=== PATIENT | male | born 1970 | race African-American/Black ===

== ENCOUNTER 2020-03-28 11:14 | Inpatient (IN) ==
[2020-03-28] MEDS ORDERED: SODIUM CHLORIDE 0.9% 1000ML 1,000 ML IV SCH (11:30)
--- NOTE | 2020-03-28 11:31 | Emergency Department Note ---
Impression & Plan Unresponsive episode, Atrial fibrillation with rapid ventricular response, Hypothermia, Acute dehydration ED Provider Note NAME: HEMANT EVERETT AGE: 49 SEX: M : 1970 ARRIVES VIA: Ambulance INFORMANT: [Patient][ems] ED PROVIDER(S): [Jhonathan Vee MD] CHIEF COMPLAINT: Unresponsive episode HISTORY OF PRESENT ILLNESS: The patient is a 49-year-old male who is brought in for an unresponsive episode. 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 The patient was sitting in a car and found to be unresponsive. He was cold to the touch. His pupils were pinpoint. EMS arrived, [id number] ventilation was done via a nasal airway. Patient received a total of 3 doses of Narcan, the third dose seemed to bring him around. He now complains only of being cold. He denies any recent trauma, he states that he was having a normal day today earlier. He denies any drugs or alcohol. There is security at bedside. Patient denies chest pain or shortness of breath. He denies any abdominal pain. He denies weakness. REVIEW OF SYSTEMS: See HPI for pertinent positives and negatives. A total of ten systems were reviewed and were otherwise negative. PMHx/PSHx: See Below SOCIAL HISTORY: See Below. PHYSICAL EXAM: GENERAL: Patient is in mild distress HEENT: No acute trauma, normocephalic atraumatic, mucous membranes moist, no nasal congestion, no scleral icterus. Bilateral conjunctival injection noted. NECK: No stridor, no adenopathy, no meningismus, trachea is midline. LUNGS: Clear to auscultation bilaterally, no wheeze, no rhonchi, breath sounds equal. HEART: Mildly tachycardic, somewhat irregular rhythm. No murmurs heard. ABDOMEN: Soft, nontender, bowel sounds positive, no hernias, no peritonitis. EXTREMITIES: No cyanosis or edema, full range of motion of all the joints without pain or difficulty, no signs for acute trauma. NEUROLOGIC: Awake and alert, moves all extremities, answers simple questions. Currently appears oriented. SKIN: No rash, no jaundice, no diaphoresis. DIFFERENTIAL DIAGNOSIS: Infection, dehydration, metabolic abnormality, intracranial bleeding, drug and alcohol abuse, hypothermia, stroke, dysrhythmia, hypo/hyperglycemia, electrolyte disturbance, anemia, hypoxia, cardiac sources, intracerebral event, toxicologic, neurologic, as well as other pathologies. EMERGENCY DEPARTMENT COURSE/PROCEDURES: ECG: Indication was unresponsive episode. The ECG shows significant baseline artifact making rhythm interpretation near impossible. There may be an underlying atrial fibrillation. The rate is about 120. No obvious ST elevation, no PVCs. QTC is 483. Repeat ECG: Second EKG was done because of tachycardia. The ECG shows atrial fibrillation with a rate of 128. There is no ST elevation, no PVCs. The QTc is 475. Continuous Cardiac Monitoring: An order was placed for continuous cardiac monitoring. The monitor shows a rate of 123 with atrial fibrillation. Critical Care Note: I have personally spent 42 minutes of critical care time in the direct management of this patient. This includes bedside care, interpretation of diagnostic studies, and testing, discussion with consultants, patient, and family members, and other required patient management activities. This 42 minutes is in excess of all separately billable procedures. MEDICAL DECISION MAKING: There is a mild leukocytosis at 13,000, this could be consistent with infection or the stress of his situation. There is a normal hemoglobin. There is a slightly low platelet count at 128. No significant electrolyte abnormality or kidney failure. Lactic acid level was somewhat elevated consistent with dehydration or possibly infection. No worrisome liver enzyme elevation. The patient appeared to be in a euthyroid state. ECG showed a rapid atrial fibrill ation, no acute ischemia. Cardiac enzyme testing x1 is not consistent with acute cardiac injury. Chest film did not show pneumonia or CHF. Brain CT showed no acute bleed or mass-effect. Urinalysis did not show any evidence for infection. Urine tox was positive for cocaine and marijuana. Alcohol level was mildly elevated at 13. Covid testing returned negative. On my exam, the patient was tachycardic, he was oriented x3. His skin was cold to the touch. The patient was aggressively managed. He was hypothermic by our testing. A kamaljit hugger was applied. He received 2 L of IV saline for hydration, 1 L of lactated Ringer's for hydration. He received 5 mg of Lopressor IV for his rapid A. fib. The patient is improving. He remains tachycardic and in atrial fibrillation however, he is doing well otherwise. His temperature has improved. The patient requires a hospital stay. Drug use/abuse seems a likely cause for his presentation. As per the EMS crew, he rebounded after intranasal Narcan was administered. I did speak to the patient, I spoke with case management. The on-call hospitalist has been consulted. Past Med/Surg History Medical History Alcohol dependence Social History Smoking Status: Current every day smoker Tobacco Type: Cigarettes Preferred Language: Niuean Feels Safe at Home: Yes Allergies Allergies Allergy/AdvReac Type Severity Reaction Status Date / Time No Known Drug Allergies Allergy Unknown Unverified 03/28/20 14:05 shellfish derived Allergy Unknown Unverified 03/28/20 14:05 Home Meds Home Medications Medication Instructions Recorded Confirmed No Known Home Medications 03/28/20 03/28/20 Results & Data (ED) Vital Signs Vital Signs - 24 hr 03/28/20 11:15 03/28/20 11:25 03/28/20 11:26 Temperature 31.5 C L Temperature Source Rectal Pulse Rate 122 H 127 H Pulse Rate from SpO2 Sensor 96 H Pulse Rhythm Irregular Pulse Strength Normal Respiratory Rate 20 21 Respiratory Effort / Characteristics Non-Labored Spontaneous Respiratory Depth Normal Respiratory Pattern Regular Blood Pressure 140/110 H Blood Pressure Mean 120 Blood Pressure Position Lying Pulse Oximetry 99 100 99 Oxygen Delivery Method Room Air Room Air Sepsis Recent Fever Within 48 Hours No Sepsis New/Unexplained Change in Mental Status Yes Sepsis Action Taken by Nursing No Action Required 03/28/20 11:27 03/28/20 11:30 03/28/20 11:45 Temperature Temperature Source Pulse Rate 131 H 132 H 143 H Pulse Rate from SpO2 Sensor 110 H 130 H Pulse Rhythm Pulse Strength Respiratory Rate 18 18 18 Respiratory Effort / Characteristics Respiratory Depth Respiratory Pattern Blood Pressure 140/110 H Blood Pressure Mean 114 Blood Pressure Position Pulse Oximetry 94 98 Oxygen Delivery Method Sepsis Recent Fever Within 48 Hours Sepsis New/Unexplained Change in Mental Status Sepsis Action Taken by Nursing 03/28/20 11:46 03/28/20 12:00 03/28/20 12:05 Temperature Temperature Source Pulse Rate 142 H 130 H 137 H Pulse Rate from SpO2 Sensor 125 H 112 H 130 H Pulse Rhythm Pulse Strength Respiratory Rate 20 24 27 H Respiratory Effort / Characteristics Respiratory Depth Respiratory Pattern Blood Pressure 161/117 H 185/165 H Blood Pressure Mean 149 167 Blood Pressure Position Pulse Oximetry 97 99 100 Oxygen Delivery Method Sepsis Recent Fever Within 48 Hours Sepsis New/Unexplained Change in Mental Status Sepsis Action Taken by Nursing 03/28/20 12:16 03/28/20 12:31 03/28/20 12:45 Temperature Temperature Source Pulse Rate 127 H 119 H 122 H Pulse Rate from SpO2 Sensor 104 H 102 H 110 H Pulse Rhythm Pulse Strength Respiratory Rate 27 H 21 14 Respiratory Effort / Characteristics Respiratory Depth Respiratory Pattern Blood Pressure 82/69 L 95/74 L 95/70 L Blood Pressure Mean 72 81 87 Blood Pressure Position Pulse Oximetry 97 99 98 Oxygen Delivery Method Sepsis Recent Fever Within 48 Hours Sepsis New/Unexplained Change in Mental Status Sepsis Action Taken by Nursing 03/28/20 13:01 03/28/20 13:18 03/28/20 13:20 Temperature 36.4 C Temperature Source Oral Pulse Rate 132 H 139 H Pulse Rate from SpO2 Sensor 106 H 106 H Pulse Rhythm Pulse Strength Respiratory Rate 12 17 Respiratory Effort / Characteristics Respiratory Depth Respiratory Pattern Blood Pressure 80/51 L 111/86 Blood Pressure Mean 70 92 Blood Pressure Position Pulse Oximetry 98 97 Oxygen Delivery Method Sepsis Recent Fever Within 48 Hours Sepsis New/Unexplained Change in Mental Status Sepsis Action Taken by Nursing 03/28/20 13:31 03/28/20 13:46 03/28/20 13:59 Temperature Temperature Source Pulse Rate 124 H 149 H 160 H Pulse Rate from SpO2 Sensor 95 H 115 H Pulse Rhythm Pulse Strength Respiratory Rate 12 12 Respiratory Effort / Characteristics Respiratory Depth Respiratory Pattern Blood Pressure 97/72 L 147/114 H 96/78 L Blood Pressure Mean 75 131 Blood Pressure Position Pulse Oximetry 97 98 Oxygen Delivery Method Sepsis Recent Fever Within 48 Hours Sepsis New/Unexplained Change in Mental Status Sepsis Action Taken by Nursing 03/28/20 14:02 03/28/20 14:16 03/28/20 14:30 Temperature Temperature Source Pulse Rate 129 H 174 H 120 H Pulse Rate from SpO2 Sensor 92 H 87 Pulse Rhythm Pulse Strength Respiratory Rate 16 23 15 Respiratory Effort / Characteristics Respiratory Depth Respiratory Pattern Blood Pressure 96/78 L 117/97 103/63 Blood Pressure Mean 83 100 85 Blood Pressure Position Pulse Oximetry 95 97 Oxygen Delivery Method Sepsis Recent Fever Within 48 Hours Sepsis New/Unexplained Change in Mental Status Sepsis Action Taken by Nursing 03/28/20 14:48 03/28/20 15:00 03/28/20 15:08 Temperature Temperature Source Pulse Rate 118 H 116 H Pulse Rate from SpO2 Sensor 72 66 Pulse Rhythm Pulse Strength Respiratory Rate 13 11 L Respiratory Effort / Characteristics Respiratory Depth Respiratory Pattern Blood Pressure 89/65 L 98/70 L Blood Pressure Mean 68 76 Blood Pressure Position Pulse Oximetry 93 89 L 93 Oxygen Delivery Method Room Air Sepsis Recent Fever Within 48 Hours Sepsis New/Unexplained Change in Mental Status Sepsis Action Taken by Nursing 03/28/20 15:15 03/28/20 15:38 03/28/20 15:45 Temperature Temperature Source Pulse Rate 120 H 136 H Pulse Rate from SpO2 Sensor 92 H Pulse Rhythm Pulse Strength Respiratory Rate 14 14 Respiratory Effort / Characteristics Respiratory Depth Respiratory Pattern Blood Pressure 97/68 L 101/72 97/73 L Blood Pressure Mean 83 88 83 Blood Pressure Position Pulse Oximetry 93 Oxygen Delivery Method Sepsis Recent Fever Within 48 Hours Sepsis New/Unexplained Change in Mental Status Sepsis Action Taken by Nursing 03/28/20 16:00 03/28/20 16:15 03/28/20 16:30 Temperature Temperature Source Pulse Rate 126 H 116 H 123 H Pulse Rate from SpO2 Sensor 90 Pulse Rhythm Pulse Strength Respiratory Rate 15 17 14 Respiratory Effort / Characteristics Respiratory Depth Respiratory Pattern Blood Pressure 89/69 L 102/76 88/67 L Blood Pressure Mean 81 87 71 Blood Pressure Position Pulse Oximetry 93 Oxygen Delivery Method Sepsis Recent Fever Within 48 Hours Sepsis New/Unexplained Change in Mental Status Sepsis Action Taken by Longterm Medications Current Medication List: was personally reviewed by me Laboratory Data Attestation: I reviewed the patient's lab results. Result diagrams: 03/28/20 11:52 03/28/20 11:52 Lab Results 03/28/20 03/28/20 03/28/20 Range/Units 11:52 11:52 11:52 WBC 13.12 H (4.8-10.8) K/uL RBC 4.73 (4.7-6.1) M/uL Hgb 15.5 (14.0-18.0) g/dL Hct 45.1 (42-52) % MCV 95.3 (80-100) fL MCH 32.8 (25-34) pg MCHC 34.4 (32-36) g/dL RDW Std Deviation 48.5 H (36.4-46.3) fL RDW Coeff of Felicia 13.7 (11.5-14.5) % Plt Count 128 L (130-400) K/uL MPV 10.7 H (7.4-10.4) fL Immature Gran % (Auto) 0.6 % Neut % (Auto) 73.0 % Lymph % (Auto) 22.5 % Lea % (Auto) 3.3 % Eos % (Auto) 0.5 % Baso % (Auto) 0.1 % Neut # (Auto) 9.58 H (1.4-6.5) K/uL Lymph # (Auto) 2.95 (1.2-3.4) K/uL Lea # (Auto) 0.43 (0.11-0.59) K/uL Eos # (Auto) 0.07 (0-0.5) K/uL Baso # (Auto) 0.01 (0-0.2) K/uL Immature Gran # (Auto) 0.08 H (0.00-0.02) K/uL PT (9.0-12.0) Seconds INR (0.9-1.1) Sodium 135 L (136-145) mmol/L Potassium 3.8 (3.5-5.1) mmol/L Chloride 101 (98-107) mmol/L Carbon Dioxide 20 L (21-32) mmol/L Anion Gap 14.0 H (3-11) BUN 14 (7-18) mg/dl Creatinine 1.09 (0.6-1.4) mg/dl Est Cr Clr Drug Dosing 76.2 ml/min Est GFR ( Amer) 93.2 Est GFR (Non-Af Amer) 80.4 BUN/Creatinine Ratio 12.5 (10-20) Glucose 240 H (70-99) mg/dl Lactate Cancelled Calcium 8.7 (8.5-10.1) mg/dl Magnesium 2.5 H (1.8-2.4) mg/dl Total Bilirubin 0.3 (0.2-1) mg/dl AST 44 H (15-37) U/L ALT 39 (12-78) U/L Alkaline Phosphatase 103 (45-117) U/L Total Creatine Kinase 296 (39-308) U/L Troponin I < 0.015 (0-0.045) ng/ml Total Protein 9.4 H (6.4-8.2) gm/dl Albumin 4.1 (3.4-5.0) gm/dl Globulin 5.3 H (2.5-4.0) gm/dl Albumin/Globulin Ratio 0.8 L (0.9-2) TSH 1.490 (0.300-4.500) uIu/ml Urine Color Urine Appearance (Clear) Urine pH (4.5-7.5) Ur Specific Gatzke (1.000-1.030) Urine Protein (Negative) Urine Glucose (UA) (Negative) Urine Ketones (Negative) Urine Blood (Negative) Urine Nitrite (Negative) Urine Bilirubin (Negative) Urine Urobilinogen (Negative) Ur Leukocyte Esterase (Negative) Urine WBC (Auto) (0-5) /hpf Urine RBC (Auto) (0-4) /hpf U Hyaline Cast (Auto) (0-5) /lpf U Epithel Cells (Auto) (0-5) /lpf Urine Bacteria (Auto) (Negative) Urine Opiates Screen (Neg) Ur Methadone, Qual (Neg) Urine Barbiturates (Neg) Ur Phencyclidine (PCP) (Neg) U Amphetamin/Meth Scrn (Neg) MDMA (Ecstasy) Screen (Neg) U Benzodiazepines Scrn (Neg) Ur Cocaine Metabolite (Neg) U Marijuana (THC) Screen (Neg) Ethyl Alcohol mg/dL (0-3) mg/dl SARS-CoV-2 Ag (Rapid) (Negative) 03/28/20 03/28/20 03/28/20 Range/Units 11:52 12:00 13:26 WBC (4.8-10.8) K/uL RBC (4.7-6.1) M/uL Hgb (14.0-18.0) g/dL Hct (42-52) % MCV (80-100) fL MCH (25-34) pg MCHC (32-36) g/dL RDW Std Deviation (36.4-46.3) fL RDW Coeff of Felicia (11.5-14.5) % Plt Count (130-400) K/uL MPV (7.4-10.4) fL Immature Gran % (Auto) % Neut % (Auto) % Lymph % (Auto) % Lea % (Auto) % Eos % (Auto) % Baso % (Auto) % Neut # (Auto) (1.4-6.5) K/uL Lymph # (Auto) (1.2-3.4) K/uL Lea # (Auto) (0.11-0.59) K/uL Eos # (Auto) (0-0.5) K/uL Baso # (Auto) (0-0.2) K/uL Immature Gran # (Auto) (0.00-0.02) K/uL PT 10.7 (9.0-12.0) Seconds INR 1.0 (0.9-1.1) Sodium (136-145) mmol/L Potassium (3.5-5.1) mmol/L Chloride (98-107) mmol/L Carbon Dioxide (21-32) mmol/L Anion Gap (3-11) BUN (7-18) mg/dl Creatinine (0.6-1.4) mg/dl Est Cr Clr Drug Dosing ml/min Est GFR ( Amer) Est GFR (Non-Af Amer) BUN/Creatinine Ratio (10-20) Glucose (70-99) mg/dl Lactate 2.6 H* Calcium (8.5-10.1) mg/dl Magnesium (1.8-2.4) mg/dl Total Bilirubin (0.2-1) mg/dl AST (15-37) U/L ALT (12-78) U/L Alkaline Phosphatase (45-117) U/L Total Creatine Kinase (39-308) U/L Troponin I (0-0.045) ng/ml Total Protein (6.4-8.2) gm/dl Albumin (3.4-5.0) gm/dl Globulin (2.5-4.0) gm/dl Albumin/Globulin Ratio (0.9-2) TSH (0.300-4.500) uIu/ml Urine Color Urine Appearance (Clear) Urine pH (4.5-7.5) Ur Specific Gatzke (1.000-1.030) Urine Protein (Negative) Urine Glucose (UA) (Negative) Urine Ketones (Negative) Urine Blood (Negative) Urine Nitrite (Negative) Urine Bilirubin (Negative) Urine Urobilinogen (Negative) Ur Leukocyte Esterase (Negative) Urine WBC (Auto) (0-5) /hpf Urine RBC (Auto) (0-4) /hpf U Hyaline Cast (Auto) (0-5) /lpf U Epithel Cells (Auto) (0-5) /lpf Urine Bacteria (Auto) (Negative) Urine Opiates Screen (Neg) Ur Methadone, Qual (Neg) Urine Barbiturates (Neg) Ur Phencyclidine (PCP) (Neg) U Amphetamin/Meth Scrn (Neg) MDMA (Ecstasy) Screen (Neg) U Benzodiazepines Scrn (Neg) Ur Cocaine Metabolite (Neg) U Marijuana (THC) Screen (Neg) Ethyl Alcohol mg/dL 13.5 H (0-3) mg/dl SARS-CoV-2 Ag (Rapid) (Negative) 03/28/20 03/28/20 03/28/20 Range/Units 14:19 14:19 14:25 WBC (4.8-10.8) K/uL RBC (4.7-6.1) M/uL Hgb (14.0-18.0) g/dL Hct (42-52) % MCV (80-100) fL MCH (25-34) pg MCHC (32-36) g/dL RDW Std Deviation (36.4-46.3) fL RDW Coeff of Felicia (11.5-14.5) % Plt Count (130-400) K/uL MPV (7.4-10.4) fL Immature Gran % (Auto) % Neut % (Auto) % Lymph % (Auto) % Lea % (Auto) % Eos % (Auto) % Baso % (Auto) % Neut # (Auto) (1.4-6.5) K/uL Lymph # (Auto) (1.2-3.4) K/uL Lea # (Auto) (0.11-0.59) K/uL Eos # (Auto) (0-0.5) K/uL Baso # (Auto) (0-0.2) K/uL Immature Gran # (Auto) (0.00-0.02) K/uL PT (9.0-12.0) Seconds INR (0.9-1.1) Sodium (136-145) mmol/L Potassium (3.5-5.1) mmol/L Chloride (98-107) mmol/L Carbon Dioxide (21-32) mmol/L Anion Gap (3-11) BUN (7-18) mg/dl Creatinine (0.6-1.4) mg/dl Est Cr Clr Drug Dosing ml/min Est GFR ( Amer) Est GFR (Non-Af Amer) BUN/Creatinine Ratio (10-20) Glucose (70-99) mg/dl Lactate Calcium (8.5-10.1) mg/dl Magnesium (1.8-2.4) mg/dl Total Bilirubin (0.2-1) mg/dl AST (15-37) U/L ALT (12-78) U/L Alkaline Phosphatase (45-117) U/L Total Creatine Kinase (39-308) U/L Troponin I (0-0.045) ng/ml Total Protein (6.4-8.2) gm/dl Albumin (3.4-5.0) gm/dl Globulin (2.5-4.0) gm/dl Albumin/Globulin Ratio (0.9-2) TSH (0.300-4.500) uIu/ml Urine Color Yellow Urine Appearance Clear (Clear) Urine pH 5.0 (4.5-7.5) Ur Specific Gatzke 1.022 (1.000-1.030) Urine Protein 2+ H (Negative) Urine Glucose (UA) 2+ H (Negative) Urine Ketones Negative (Negative) Urine Blood Trace H (Negative) Urine Nitrite Negative (Negative) Urine Bilirubin Negative (Negative) Urine Urobilinogen Negative (Negative) Ur Leukocyte Esterase Negative (Negative) Urine WBC (Auto) 1-5 (0-5) /hpf Urine RBC (Auto) 0-4 (0-4) /hpf U Hyaline Cast (Auto) 1-5 (0-5) /lpf U Epithel Cells (Auto) 5-10 H (0-5) /lpf Urine Bacteria (Auto) Negative (Negative) Urine Opiates Screen Neg (Neg) Ur Methadone, Qual Neg (Neg) Urine Barbiturates Neg (Neg) Ur Phencyclidine (PCP) Neg (Neg) U Amphetamin/Meth Scrn Neg (Neg) MDMA (Ecstasy) Screen Neg (Neg) U Benzodiazepines Scrn Neg (Neg) Ur Cocaine Metabolite Pos H (Neg) U Marijuana (THC) Screen Pos H (Neg) Ethyl Alcohol mg/dL (0-3) mg/dl SARS-CoV-2 Ag (Rapid) Negative (Negative) Administered Medications Heparin Sodium/Dextrose (Heparin Sodium/Dextrose) 25,000 units in 500 mls @ 23 mls/hr IV .[id number] [facility]; Protocol Stop: 04/27/20 15:59 Last Admin: 03/28/20 16:26 Dose: 1,150 units/hr, 23 mls/hr Documented by: [id number] Cosigned by: [id number] Multivitamins 10 ml/ Thiamine HCl 100 mg/ Folic Acid 1 mg/Sodium Chloride 1,011.2 mls @ 500 mls/hr IV .Q2H2M ONE Stop: 03/28/20 18:01 Last Admin: 03/28/20 16:26 Dose: 500 mls/hr Documented by: [id number] Discontinued Medications Heparin Sodium (Porcine) (Heparin Bolus Ed Use Only) 5,000 units IV NOW STA Stop: 03/28/20 15:56 Last Admin: 03/28/20 16:25 Dose: 5,000 units Documented by: [id number] Cosigned by: [id number] Heparin Sodium/Dextrose (Heparin Iv Standard With Bolus) 1 ea IV NOW STA; Protocol Stop: 03/28/20 14:56 Last Admin: 03/28/20 16:25 Dose: Not Given Documented by: [id number] Sodium Chloride (Nss 1000ml) 1,000 mls @ 999 mls/hr IV .Q1H1M DESIREE Stop: 03/28/20 12:30 Last Infusion: 03/28/20 12:30 Dose: 0 mls/hr Documented by: [id number] Admin: 03/28/20 11:30 Dose: 999 mls/hr Documented by: [id number] Sodium Chloride (Nss 1000ml) 1,000 mls @ 999 mls/hr IV .Q1H1M ONE Stop: 03/28/20 13:26 Last Infusion: 03/28/20 14:09 Dose: 0 mls/hr Documented by: [id number] Admin: 03/28/20 12:30 Dose: 999 mls/hr Documented by: [id number] Lactated Ringer's (Lr) 1,000 mls @ 999 mls/hr IV .Q1H1M STA Stop: 03/28/20 14:45 Last Infusion: 03/28/20 15:04 Dose: 0 mls/hr Documented by: [id number] Admin: 03/28/20 13:55 Dose: 999 mls/hr Documented by: [id number] Metoprolol Tartrate (Metoprolol Tartrate 1 Mg/Ml Vial) 5 mg IV NOW STA Stop: 03/28/20 13:40 Last Admin: 03/28/20 13:59 Dose: 5 mg Documented by: [id number] Imaging Data Radiologist's Impression: XR chest 1V portable HISTORY: weakness COMPARISON: None. FINDINGS: No pneumothorax. No pleural effusions. The heart is normal in size. Slight prominence of interstitial markings. No focal lung consolidations identified. IMPRESSION: Slight prominence of interstitial markings which could be chronic. No focal lung consolidations to suggest pneumonia. CT head/brain wo con CLINICAL HISTORY: 49 years-old Male with confusion. Acutely altered mental status TECHNIQUE: Multiple axial CT images of the head were obtained without contrast. A dose lowering technique was utilized adhering to the principles of ALARA. CT DOSE: 729.78 mGycm COMPARISON: None. FINDINGS: No acute intracranial hemorrhage, midline shift, intracranial mass, hydrocephalus, territorial ischemia or abnormal extra-axial collection. The calvarium is intact. The paranasal sinuses, mastoid air cells, and middle ear cavities are clear. IMPRESSION: No acute intracranial abnormality. Discharge Plan Visit Data Chief Complaint: Unresponsive Stated Complaint: Accidental OD ED Provider: Jhonathan Vee Discharge Problem: Unresponsive episode, Atrial fibrillation with rapid ventricular response, Hypothermia, Acute dehydration Patient Disposition: Admitted As Inpatient Condition: Fair Forms Stand Alone Forms: [facility] Prescriptions Prescriptions: No Action No Known Home Medications RF: 0 Referrals Referrals: PCP,NO [Primary Care Provider] - Discharge Problem: Hypothermia Qualifiers: Encounter type: initial encounter Qualified Code(s): T68.XXXA - Hypothermia, initial encounter
--- NOTE | 2020-03-28 11:44 | XRay Report ---
XR chest 1V portable HISTORY: weakness COMPARISON: None. FINDINGS: No pneumothorax. No pleural effusions. The heart is normal in size. Slight prominence of in terstitial markings. No focal lung consolidations identified. IMPRESSION: Slight prominence of interstitial markings which could be chronic. No focal lung consolidations to sanchez ggest pneumonia. ACT 112: Negative or not required by law. Electronically signed by: Peterson Delgado M.D. 03/28/2020 11:43 AM
[2020-03-28 12:05] LABS: Basophils # (auto) 0.01 K/uL (0-0.2); Basophils % (auto) 0.1 %; Eosinophils # (auto) 0.07 K/uL (0-0.5); Eosinophils % (auto) 0.5 %; Hematocrit (blood only) 45.1 % (42-52); Hemoglobin 15.5 g/dL (14.0-18.0); Immature Granulocytes # (auto) 0.08 K/uL (0.00-0.02); Immature Granulocytes % (auto) 0.6 %; Lymphocytes # (auto) 2.95 K/uL (1.2-3.4); Lymphocytes % (auto) 22.5 %; Mean Corpuscular Hemoglobin 32.8 pg (25-34); Mean Corpuscular Hgb Conc 34.4 g/dL (32-36); Mean Corpuscular Volume 95.3 fL (80-100); Mean Platelet Volume 10.7 fL (7.4-10.4); Monocytes # (auto) 0.43 K/uL (0.11-0.59); Monocytes % (auto) 3.3 %; Neutrophils # (auto) 9.58 K/uL (1.4-6.5); Platelet Count 128 K/uL (130-400); RDW Coefficient of Variation 13.7 % (11.5-14.5); RDW Standard Deviation 48.5 fL (36.4-46.3); Red Blood Count 4.73 M/uL (4.7-6.1); White Blood Count 13.12 K/uL (4.8-10.8)
[2020-03-28] MEDS ORDERED: SODIUM CHLORIDE 0.9% 1000ML 1,000 ML IV ONE (12:26)
[2020-03-28 12:37] LABS: Albumin Level 4.1 gm/dl (3.4-5.0); BUN Creatinine Ratio 12.5 (10-20); Blood Urea Nitrogen 14 mg/dl (7-18); Calcium 8.7 mg/dl (8.5-10.1); Carbon Dioxide 20 mmol/L (21-32); Chloride 101 mmol/L (98-107); Creatinine Clr Calc Pharmacy 76.2 ml/min; Est GFR (African American) 93.2; Est GFR (Non-African American) 80.4; Glucose 240 mg/dl (70-99); Magnesium 2.5 mg/dl (1.8-2.4); Potassium 3.8 mmol/L (3.5-5.1); Sodium 135 mmol/L (136-145)
[2020-03-28 12:45] LABS: Alanine Aminotransferase 39 U/L (12-78); Albumin Globulin Ratio 0.8 (0.9-2); Alkaline Phosphatase 103 U/L (45-117); Aspartate Aminotransferase 44 U/L (15-37); Bilirubin,Total 0.3 mg/dl (0.2-1); Creatine Kinase 296 U/L (39-308); Globulin 5.3 gm/dl (2.5-4.0); Total Protein 9.4 gm/dl (6.4-8.2); Troponin I < 0.015 ng/ml (0-0.045)
--- NOTE | 2020-03-28 13:19 | CT Scan Report ---
CT head/brain wo con CLINICAL HISTORY: 49 years-old Male with confusion. Acutely altered mental status TECHNIQUE: Multiple axial CT images of the head were obtained without contrast. A dose lowering tech nique was utilized adhering to the principles of ALARA. CT DOSE: 729.78 mGycm COMPARISON: None. FINDINGS: No acute intracranial hemorrhage, midline shift, intracranial mass, hydrocephalus, territorial ischem ia or abnormal extra-axial collection. The calvarium is intact. The paranasal sinuses, mastoid air cells, and middle ear cavities are clear . IMPRESSION: No acute intracranial abnormality. ACT 112: Negative or not required by law. The above report was generated using voice recognition software. It may contain grammatical, syntax o r spelling errors. Electronically signed by: Glen Reyes M.D. 03/28/2020 1:18 PM
[2020-03-28] MEDS ORDERED: METOPROLOL TARTRATE 1 MG/ML VIAL IV STA (13:39)
[2020-03-28] MEDS ORDERED: LACTATED RINGER'S 1,000 ML IV STA (13:45)
--- NOTE | 2020-03-28 15:06 | History & Physical Report ---
Date of Service March 28, 2020 Assessment & Plan (1) Atrial fibrillation with rapid ventricular response: Starting metoprolol 25 mg twice daily Heparin infusion Echocardiogram EKGs Amiodarone infusion Present on Admission?: Yes (2) Acute encephalopathy: Resolved -Likely secondary to polysubstance abuse Present on Admission?: Yes (3) Lactic acid blood increased: Likely resolved after volume repletion in ED Present on Admission?: Yes (4) Marijuana smoker: Tobacco avoidance education Present on Admission?: Yes (5) Alcohol dependence: Withdrawal monitoring -Thiamine and folate supplementation (6) Polysubstance dependence including opioid type drug, episodic abuse: Likely narcotic related -Offer resources for Narcotics Anonymous History of Present Illness Chief Complaint: Unresponsiveness Primary Care Provider: NO PCP Patient is a 49-year-old -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 Only significant past medical history is that for back pain for which she sees chiropractic for. Chiropractor has him on a every 3-week manipulation schedule. He reports that he smokes tobacco, drinks a sixpack of beer daily, never had alcohol withdrawals, smokes marijuana and tobacco. He reports that he was having back pain and an acquaintance offered him a Percocet (blue tablet). He went to his car and took half a tablet and then does not remember any of the following events. Additional history was obtained from the emergency medicine provider and EMS providers, per ED provider the patient was found to be unresponsive in his car police administered to Narcan's and EMS provided a third which prompted return of consciousness. In the emergency department his only complaint of being cold for which he was noted to be hypothermic. During my evaluation the patient denies chest pain shortness of breath nor palpitations. He denies family history of sudden cardiac or heart disease before the age of 55. Denies IV drug use. Allergies Allergy/AdvReac Type Severity Reaction Status Date / Time No Known Drug Allergies Allergy Unknown Unverified 03/28/20 14:05 shellfish derived Allergy Unknown Unverified 03/28/20 14:05 Home Medications Medication Instructions Recorded Confirmed Type No Known Home Medications 03/28/20 03/28/20 History Past Med/Surg History Social History Smoking Status: Current every day smoker Tobacco Type: Cigarettes Preferred Language: Italian Feels Safe at Home: Yes Review of Systems Review of Systems: All systems reviewed & are unremarkable except as noted in HPI & below No chest pain no shortness of breath Physical Exam Physical Exam: General: Well-nourished -Senegalese male appears stated age I have reviewed the recorded vital signs Neurological: Cranial nerves II through XII grossly intact, moves all 4 extremities, Psychological: Alert and oriented x3 conversant Eyes: Pupils are equal, round and reactive to light, anicteric sclera. Symmetrical lids. HENT: Oropharynx Clear, moist Mucous Membranes. Neck: Supple. Symmetric. trachea midline. No thyromegaly. Cardiovascular: Normal peripheral perfusion. Distal pulses and capillary refill intact. No JVD. S1-S2, tachycardia Respiratory: Respirations are non-labored, no accessory muscle use. Breath sounds are equal. Gastrointestinal: Soft. Non-distended. Lymphatic: No cervical lymphadenopathy. Musculoskeletal: No deformity. Early signs of clubbing Results & Data Results & Data ([facility]) Vital Signs (Past 12 Hours) Vital Signs Temp Pulse Resp BP Pulse Ox 03/28/20 13:59 160 H 96/78 L 03/28/20 13:20 36.4 C 03/28/20 13:18 139 H 17 111/86 97 03/28/20 13:01 132 H 12 80/51 L 98 03/28/20 12:45 122 H 14 95/70 L 98 03/28/20 12:31 119 H 21 95/74 L 99 03/28/20 12:16 127 H 27 H 82/69 L 97 03/28/20 12:05 137 H 27 H 185/165 H 100 03/28/20 12:00 130 H 24 99 03/28/20 11:46 142 H 20 161/117 H 97 03/28/20 11:45 143 H 18 98 03/28/20 11:30 132 H 18 94 03/28/20 11:27 131 H 18 140/110 H 03/28/20 11:26 99 03/28/20 11:25 127 H 21 100 03/28/20 11:15 31.5 C L 122 H 20 140/110 H 99 Laboratory Results 03/28/20 03/28/20 03/28/20 Range/Units 14:19 14:19 13:26 WBC (4.8-10.8) K/uL RBC (4.7-6.1) M/uL Hgb (14.0-18.0) g/dL Hct (42-52) % MCV (80-100) fL MCH (25-34) pg MCHC (32-36) g/dL RDW Std Deviation (36.4-46.3) fL RDW Coeff of Felicia (11.5-14.5) % Plt Count (130-400) K/uL MPV (7.4-10.4) fL Immature Gran % (Auto) % Neut % (Auto) % Lymph % (Auto) % Sabine % (Auto) % Eos % (Auto) % Baso % (Auto) % Neut # (Auto) (1.4-6.5) K/uL Lymph # (Auto) (1.2-3.4) K/uL Sabine # (Auto) (0.11-0.59) K/uL Eos # (Auto) (0-0.5) K/uL Baso # (Auto) (0-0.2) K/uL Immature Gran # (Auto) (0.00-0.02) K/uL Sodium (136-145) mmol/L Potassium (3.5-5.1) mmol/L Chloride (98-107) mmol/L Carbon Dioxide (21-32) mmol/L Anion Gap (3-11) BUN (7-18) mg/dl Creatinine (0.6-1.4) mg/dl Est Cr Clr Drug Dosing ml/min Est GFR ( Amer) Est GFR (Non-Af Amer) BUN/Creatinine Ratio (10-20) Glucose (70-99) mg/dl Lactate 2.6 H* Calcium (8.5-10.1) mg/dl Magnesium (1.8-2.4) mg/dl Total Bilirubin (0.2-1) mg/dl AST (15-37) U/L ALT (12-78) U/L Alkaline Phosphatase (45-117) U/L Total Creatine Kinase (39-308) U/L Troponin I (0-0.045) ng/ml Total Protein (6.4-8.2) gm/dl Albumin (3.4-5.0) gm/dl Globulin (2.5-4.0) gm/dl Albumin/Globulin Ratio (0.9-2) TSH (0.300-4.500) uIu/ml Urine Color Pending Urine Appearance Pending Urine pH Pending Ur Specific [place] Pending Urine Protein Pending Urine Glucose (UA) Pending Urine Ketones Pending Urine Blood Pending Urine Nitrite Pending Urine Bilirubin Pending Urine Urobilinogen Pending Ur Leukocyte Esterase Pending Urine Opiates Screen Pending Ur Methadone, Qual Pending Urine Barbiturates Pending Ur Phencyclidine (PCP) Pending U Amphetamin/Meth Scrn Pending MDMA (Ecstasy) Screen Pending U Benzodiazepines Scrn Pending Ur Cocaine Metabolite Pending U Marijuana (THC) Screen Pending Ethyl Alcohol mg/dL (0-3) mg/dl 03/28/20 03/28/20 03/28/20 Range/Units 11:52 11:52 11:52 WBC (4.8-10.8) K/uL RBC (4.7-6.1) M/uL Hgb (14.0-18.0) g/dL Hct (42-52) % MCV (80-100) fL MCH (25-34) pg MCHC (32-36) g/dL RDW Std Deviation (36.4-46.3) fL RDW Coeff of Felicia (11.5-14.5) % Plt Count (130-400) K/uL MPV (7.4-10.4) fL Immature Gran % (Auto) % Neut % (Auto) % Lymph % (Auto) % Sabine % (Auto) % Eos % (Auto) % Baso % (Auto) % Neut # (Auto) (1.4-6.5) K/uL Lymph # (Auto) (1.2-3.4) K/uL Sabine # (Auto) (0.11-0.59) K/uL Eos # (Auto) (0-0.5) K/uL Baso # (Auto) (0-0.2) K/uL Immature Gran # (Auto) (0.00-0.02) K/uL Sodium 135 L (136-145) mmol/L Potassium 3.8 (3.5-5.1) mmol/L Chloride 101 (98-107) mmol/L Carbon Dioxide 20 L (21-32) mmol/L Anion Gap 14.0 H (3-11) BUN 14 (7-18) mg/dl Creatinine 1.09 (0.6-1.4) mg/dl Est Cr Clr Drug Dosing 76.2 ml/min Est GFR ( Amer) 93.2 Est GFR (Non-Af Amer) 80.4 BUN/Creatinine Ratio 12.5 (10-20) Glucose 240 H (70-99) mg/dl Lactate Cancelled Calcium 8.7 (8.5-10.1) mg/dl Magnesium 2.5 H (1.8-2.4) mg/dl Total Bilirubin 0.3 (0.2-1) mg/dl AST 44 H (15-37) U/L ALT 39 (12-78) U/L Alkaline Phosphatase 103 (45-117) U/L Total Creatine Kinase 296 (39-308) U/L Troponin I < 0.015 (0-0.045) ng/ml Total Protein 9.4 H (6.4-8.2) gm/dl Albumin 4.1 (3.4-5.0) gm/dl Globulin 5.3 H (2.5-4.0) gm/dl Albumin/Globulin Ratio 0.8 L (0.9-2) TSH 1.490 (0.300-4.500) uIu/ml Urine Color Urine Appearance Urine pH Ur Specific [place] Urine Protein Urine Glucose (UA) Urine Ketones Urine Blood Urine Nitrite Urine Bilirubin Urine Urobilinogen Ur Leukocyte Esterase Urine Opiates Screen Ur Methadone, Qual Urine Barbiturates Ur Phencyclidine (PCP) U Amphetamin/Meth Scrn MDMA (Ecstasy) Screen U Benzodiazepines Scrn Ur Cocaine Metabolite U Marijuana (THC) Screen Ethyl Alcohol mg/dL 13.5 H (0-3) mg/dl 03/28/20 Range/Units 11:52 WBC 13.12 H (4.8-10.8) K/uL RBC 4.73 (4.7-6.1) M/uL Hgb 15.5 (14.0-18.0) g/dL Hct 45.1 (42-52) % MCV 95.3 (80-100) fL MCH 32.8 (25-34) pg MCHC 34.4 (32-36) g/dL RDW Std Deviation 48.5 H (36.4-46.3) fL RDW Coeff of Felicia 13.7 (11.5-14.5) % Plt Count 128 L (130-400) K/uL MPV 10.7 H (7.4-10.4) fL Immature Gran % (Auto) 0.6 % Neut % (Auto) 73.0 % Lymph % (Auto) 22.5 % Sabine % (Auto) 3.3 % Eos % (Auto) 0.5 % Baso % (Auto) 0.1 % Neut # (Auto) 9.58 H (1.4-6.5) K/uL Lymph # (Auto) 2.95 (1.2-3.4) K/uL Sabine # (Auto) 0.43 (0.11-0.59) K/uL Eos # (Auto) 0.07 (0-0.5) K/uL Baso # (Auto) 0.01 (0-0.2) K/uL Immature Gran # (Auto) 0.08 H (0.00-0.02) K/uL Sodium (136-145) mmol/L Potassium (3.5-5.1) mmol/L Chloride (98-107) mmol/L Carbon Dioxide (21-32) mmol/L Anion Gap (3-11) BUN (7-18) mg/dl Creatinine (0.6-1.4) mg/dl Est Cr Clr Drug Dosing ml/min Est GFR ( Amer) Est GFR (Non-Af Amer) BUN/Creatinine Ratio (10-20) Glucose (70-99) mg/dl Lactate Calcium (8.5-10.1) mg/dl Magnesium (1.8-2.4) mg/dl Total Bilirubin (0.2-1) mg/dl AST (15-37) U/L ALT (12-78) U/L Alkaline Phosphatase (45-117) U/L Total Creatine Kinase (39-308) U/L Troponin I (0-0.045) ng/ml Total Protein (6.4-8.2) gm/dl Albumin (3.4-5.0) gm/dl Globulin (2.5-4.0) gm/dl Albumin/Globulin Ratio (0.9-2) TSH (0.300-4.500) uIu/ml Urine Color Urine Appearance Urine pH Ur Specific [place] Urine Protein Urine Glucose (UA) Urine Ketones Urine Blood Urine Nitrite Urine Bilirubin Urine Urobilinogen Ur Leukocyte Esterase Urine Opiates Screen Ur Methadone, Qual Urine Barbiturates Ur Phencyclidine (PCP) U Amphetamin/Meth Scrn MDMA (Ecstasy) Screen U Benzodiazepines Scrn Ur Cocaine Metabolite U Marijuana (THC) Screen Ethyl Alcohol mg/dL (0-3) mg/dl Diagnostic Findings CT head/brain wo con CLINICAL HISTORY: 49 years-old Male with confusion. Acutely altered mental status TECHNIQUE: Multiple axial CT images of the head were obtained without contrast. A dose lowering technique was utilized adhering to the principles of ALARA. CT DOSE: 729.78 mGycm COMPARISON: None. FINDINGS: No acute intracranial hemorrhage, midline shift, intracranial mass, hydrocephalus, territorial ischemia or abnormal extra-axial collection. The calvarium is intact. The paranasal sinuses, mastoid air cells, and middle ear cavities are clear. IMPRESSION: No acute intracranial abnormality. ACT 112: Negative or not required by law. The above report was generated using voice recognition software. It may contain grammatical, syntax or spelling errors. Electronically signed by: Glen Reyes M.D. 03/28/2020 1:18 PM XR chest 1V portable HISTORY: weakness COMPARISON: None. FINDINGS: No pneumothorax. No pleural effusions. The heart is normal in size. Slight prominence of interstitial markings. No focal lung consolidations identified. IMPRESSION: Slight prominence of interstitial markings which could be chronic. No focal lung consolidations to suggest pneumonia. ACT 112: Negative or not required by law. Electronically signed by: Peterson Delgado M.D. 03/28/2020 11:43 AM Code Status & VTE Plan Code Status Full code VTE Prophylaxis Plan VTE Prophylaxis will be ordered: Yes Critical Care Time Critical Care Time: Yes Total Critical Care Time: 40 Patient critically ill due to atrial fibrillation with rapid ventricular response requiring IV metoprolol and amiodarone. I have personally spent 40 minutes of critical care time in the direct management of this patient. This is a life/limb threatening event. This includes time spent evaluating patient, direct bedside care, chart review, placing orders, interpretation of diagnostic studies, discussion with consultants, patient, and/or family members regarding treatment decisions, as well as other required patient management activities. This time is exclusive of all separately billable procedures, and teaching time and separate from and in addition to any other critical care service time. PG Care Time/CCT Total # of Minutes Spent Total Time Spent with Patient: Total time spent is greater than 50% in coordination of care (as documented) at patient's floor/unit and/or counseling patient: Critical Care Time: Yes Total Critical Care Time: 40 Coding Level of Care Code None Diagnoses Atrial fibrillation with rapid ventricular response I48.91 Acute encephalopathy G93.40 Lactic acid blood increased R79.89 Marijuana smoker F12.90 Alcohol dependence F10.20 Substance use status: uncomplicated Polysubstance dependence including opioid type drug, episodic abuse F11.20; F19.20 Additional Codes Critical Care Time - Critical Care Time: Yes ([id number]) Comment Critical care code 73994 (1) Alcohol dependence Substance use status: uncomplicated Qualified Code(s): F10.20 - Alcohol dependence, uncomplicated
[2020-03-28 15:10] LABS: Appearance Urine Clear (Clear); Bacteria Urine Automated Negative (Negative); Bilirubin Urine Negative (Negative); Blood Urine Trace (Negative); Color Urine Yellow; Glucose Urine UA 2+ (Negative); Ketones Urine Negative (Negative); Leukocyte Esterase Urine Negative (Negative); Nitrite Urine Negative (Negative); Protein Urine 2+ (Negative); RBC Urine Automated 0-4 /hpf (0-4); Specific Gravity Urine 1.022 (1.000-1.030); Urobilinogen Urine Negative (Negative)
[2020-03-28 15:23] LABS: Prothrombin Time 10.7 Seconds (9.0-12.0)
[2020-03-28 15:27] LABS: Amphetamines+Metham, Urine Neg (Neg); Barbiturates, Urine Neg (Neg); Benzodiazepine, Urine Neg (Neg); Cocaine, Urine Pos (Neg); MDMA (Ecstacy), Urine Neg (Neg); Methadone, Urine Neg (Neg); Opiate, Urine Neg (Neg); Phencyclidine, Urine Neg (Neg)
[2020-03-28] MEDS ORDERED: Heparin BOLUS **ED Use Only IV STA (15:55)
[2020-03-28] MEDS ORDERED: MULTI-VITAMIN INFUSION 10 ML, THIAMINE HCL 100 MG, FOLIC ACID 1 MG in SODIUM CHLORIDE 0... IV ONE (16:00)
[2020-03-28] MEDS ORDERED: HEPARIN SODIUM/DEXTROSE 25,000 UNITS/500 ML BAG IV SCH (16:00)
--- NOTE | 2020-03-28 17:12 | Electrocardiogram Report ---
Test Reason : Blood Pressure : / mmHG Vent. Rate : 128 BPM Atrial Rate : 174 BPM P-R Int : 000 ms QRS Dur : 070 ms QT Int : 326 ms P-R-T Axes : 000 080 040 degrees QTc Int : 475 ms Poor data quality, interpretation may be adversely affected Atrial fibrillation with rapid ventricular response Abnormal ECG No previous ECGs available Confirmed by Tarik Pope ([id number]) on 03/28/2020 5:11:53 PM Referred By: Confirmed By:Tarik Pope
[2020-03-28] MEDS ORDERED: FOLIC ACID 1 MG TAB PO STA (18:41)
[2020-03-28] MEDS ORDERED: THIAMINE HCL 100 MG TAB PO STA (18:41)
[2020-03-28] MEDS ORDERED: 0.2 MICRON FILTER SET 1 EA IV ONE (18:52)
[2020-03-28] MEDS ORDERED: ACETAMINOPHEN 325 MG TAB PO PRN (18:52)
[2020-03-28] MEDS ORDERED: AMIODARONE / D5W 150 MG/100 ML BAG IV ONE (19:00)
[2020-03-28] MEDS ORDERED: AMIODARONE / D5W 360 MG/200 ML BAG IV ONE (19:15)
[2020-03-28] MEDS: METOPROLOL TARTRATE 25 MG TAB PO SCH (20:26)
[2020-03-28 23:31] LABS: Partial Thromboplastin Ratio 3.2
[2020-03-28 23:56] LABS: Partial Thromboplastin Time 89.9 Seconds (21.0-31.0)
[2020-03-29] MEDS ORDERED: AMIODARONE / D5W 360 MG/200 ML BAG IV SCH (01:15)
[2020-03-29 05:51] LABS: Estimated Average Glucose 117 mg/dl; Hemoglobin A1C 5.7 % (4.5-5.6)
[2020-03-29 07:47] LABS: Partial Thromboplastin Ratio 2.5
[2020-03-29] MEDS: METOPROLOL TARTRATE 25 MG TAB PO SCH (08:52)
[2020-03-29] MEDS ORDERED: ASPIRIN 81 MG ECTAB PO SCH (09:00)
[2020-03-29] MEDS ORDERED: THIAMINE HCL 100 MG TAB PO SCH (09:00)
[2020-03-29] MEDS ORDERED: FOLIC ACID 1 MG TAB PO SCH (09:00)
--- NOTE | 2020-03-29 09:37 | Electrocardiogram Report ---
Test Reason : Blood Pressure : / mmHG Vent. Rate : 079 BPM Atrial Rate : 079 BPM P-R Int : 196 ms QRS Dur : 084 ms QT Int : 404 ms P-R-T Axes : 073 081 068 degrees QTc Int : 463 ms Normal sinus rhythm Left ventricular hypertrophy Anterior ST elevation, most consistent with repolarization variant Borderline ECG When compared with ECG of 28-MAR-2020 12:22, Sinus rhythm has replaced Atrial fibrillation Vent. rate has decreased BY 49 BPM Confirmed by Tarik Pope ([id number]) on 03/29/2020 9:37:04 AM Referred By: REFERRED SELF Confirmed By:Tarik Pope
--- NOTE | 2020-03-29 11:41 | XCELERA ---
[id number]
--- NOTE | 2020-03-29 15:34 | Discharge Summary ---
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 Only significant past medical history is that for back pain for which she sees chiropractic for. Chiropractor has him on a every 3-week manipulation schedule. He reports that he smokes tobacco, drinks a sixpack of beer daily, never had alcohol withdrawals, smokes marijuana and tobacco. He reports that he was having back pain and an acquaintance offered him a Percocet (blue tablet). He went to his car and took half a tablet and then does not remember any of the following events. Additional history was obtained from the emergency medicine provider and EMS providers, per ED provider the patient was found to be unresponsive in his car police administered to Narcan's and EMS provided a third which prompted return of consciousness. In the emergency department his only complaint of being cold for which he was noted to be hypothermic. During my evaluation the patient denies chest pain shortness of breath nor palpitations. He denies family history of sudden cardiac or heart disease before the age of 55. Denies IV drug use. Principal Diagnosis Atrial fibrillation with RVR Unknown substance ingestion Discharge Exam Constitutional WD/WN, vitals as above Eyes EOM intact bilaterally; no conjunctival abnormality ENMT external ear and nose normal, oropharynx normal Neck trachea midline, no thyromegaly normal visual inspection Respiratory normal respiratory effort, lungs clear to auscultation no respiratory distress Cardiovascular RRR, no murmur, no edema Gastrointestinal (Abdomen) Inspection/Auscultation: abdomen normal to inspection; abdomen not distended Musculoskeletal no cyanosis or clubbing, extremities motor strength 5/5 Skin no rashes, warm and dry Neurologic moves all extremities and awake Psychiatric Orientation: alert, oriented to person and cooperative Discharge Data Allergies Allergy/AdvReac Type Severity Reaction Status Date / Time No Known Drug Allergies Allergy Unknown Unverified 03/28/20 14:05 shellfish derived Allergy Unknown Unverified 03/28/20 14:05 Consultations 03/28/20 13:48 ED Decision to Admit Stat Ordered Studies 03/28/20 11:26 CT head/brain wo con Stat Hospital Course (1) Atrial fibrillation with rapid ventricular response: No prior history of such. No family hx that the patient reported. - Switched to sinus rhythm the morning of 03/29. - HR and BP normal after that. Given concern for ingestion, the patient was asked about any substances. Reports a "small blue pill" he took from a friend that was reportedly Percocet. Also reported drinking 3-4 beers the night prior to presentation. He felt well after cardioversion and requested discharge. - Chads-Vasc was/is 0, so no role for anticoagulation. - Asked to follow up with cardiology for event recorder or even an implantable recorder to check for other arrythmias. Assures me he is in [place] frequently and will follow up. (2) Acute encephalopathy: Resolved. - Possibly from ingestion. Encouraged to avoid pills from friends/coworkers. Encouraged Tylenol or NSAID within bottle recs for back pain. (3) Alcohol dependence: Withdrawal monitoring. - No withdrawal noted. Total Time Total Time Spent Total Time Spent (In Minutes): 35 Discharge Plan Discharge Items Patient Disposition: Home - Self-Care Reason For Visit: ATRIAL FIB WITH RVR Discharge Diagnosis: Atrial fibrillation Condition on Discharge: Good Activity: Resume your previous activity Non-emergency contact: Primary Care Provider and Thoracic Surgeon Call non-emergency contact if: your symptoms worsen Follow-up/Referrals: Sd Perez MD [Physician] - (Please call for an appointment in 4-6 weeks to check on your heart.) Diet: Regular Addtl Attending Provider Instructions: You were admitted into the hospital after being found unresponsive. Your heart rate was very fast, and we gave some medication to correct its speed. This rhythm is called atrial fibrillation. Luckily, your heart went back into a normal rhythm on its own. If this happened once, it could happen again in the future as you get older. Please follow up with the electrical & instrumentation supervisor at [facility] to discuss if you need further follow-up or testing. For your back pain, please use Tylenol, ibuprofen, or Aleve as needed within the bottle recommendations. Pending Studies at Discharge: No Stand-Alone Forms: My [facility] [employer], Smoking Cessation Medications and DC Order Prescriptions: Continued No Known Home Medications RF: 0 Discharge Orders: Discharge Order (Routine); Ordered 03/29/20 Ordered By: Wilbert Hsu Admission Data Admit Date/Time: 03/28/20 14:53 Attending Provider: Hsu,[place] J. Admit Provider: Carlitos Napoles Primary Care Provider: PCP,NO Other Providers: Wilbert Hsu Other Interventions: Discharge Summary Assessment (RN) Last Done: 03/29/20 12:11 Coding Level of Care Code D/C Day Management >30 mins Diagnoses Atrial fibrillation with rapid ventricular response I48.91 Acute encephalopathy G93.40 Alcohol dependence F10.20 Substance use status: uncomplicated
[2020-04-01 15:22] LABS: Cocaine, Urine >15000 ng/mL (<100); Marijuana Quant, GCMS Urine 268 ng/mL (<5)
== END 2020-03-29 14:12 | disposition home or self-care (01) | DRG 309 ==
LOC: ED 11:14 → 2S 14:53 → SUATTDRO 14:53 → 2S 17:43